=== PATIENT | female | born 1960 | race Caucasian/White ===

== ENCOUNTER 2024-08-03 10:18 | Emergency (ER) | payer OTHER, BC ==
[~2024-08-03] VITALS: Ht 160 cm; Wt 57.7 kg
[~2024-08-03 10:18] MED LIST: CYCL-1 PO
[2024-08-03 10:22] VITALS: BP 133/82; PULSE 64; O2SAT 100
[2024-08-03] MEDS ORDERED: LIDO700A32 TOP (12:04)
[2024-08-03] MEDS ORDERED: CYCL-1 PO (12:04)
[2024-08-03] MEDS ORDERED: ONDA-243 PO (12:04)
[2024-08-03] MEDS ORDERED: LIDOcaine 5% patch TP ONE (12:05)
[2024-08-03 12:20] VITALS: RESP 16
[2024-08-03] MEDS: ketorolac trometh 15mg/ml vial 15 MG/ML ML IM ONE (12:20)
[2024-08-03] MEDS: LIDOcaine 5% patch TP ONE (12:21)
[2024-08-03 12:27] VITALS: TEMP 97.6
== END 2024-08-03 12:29 | disposition home or self-care (01) ==
LOC: ER 10:19
DX: S13.4XXA Sprain of ligaments of cervical spine, initial encounter (principal); V89.2XXA Person injured in unspecified motor-vehicle accident, traffic, initial encounter; Y93.89 Activity, other specified; Y92.89 Other specified places as the place of occurrence of the external cause; Y99.8 Other external cause status; R51.9 Headache, unspecified
CPT/HCPCS: 70450; 72125; 96372; 99285; J1885; L0172